=== PATIENT | male | born 2000 | race Two or more races ===

== ENCOUNTER 2018-12-19 19:51 | Emergency (ER) | payer OTHER ==
[~2018-12-19] VITALS: Ht 162.6 cm; Wt 80.7 kg
[2018-12-19 20:01] VITALS: BP 152/83
[2018-12-19] MEDS ORDERED: cefTRIAXone SOD 1,000 MG VL IM ONE (23:45)
[2018-12-19] MEDS ORDERED: LIDOCAINE 1% HCL (LOCAL ANESTH.) INJ 20ML MDV ONE (23:55)
== END 2018-12-20 00:30 | disposition home or self-care (01) ==
LOC: ER 19:54
DX: L60.0 Ingrowing nail (principal)
CPT/HCPCS: 73630; 99283; J0696; J2001; L3260